=== PATIENT | male | born 1990 | race Asian ===

== ENCOUNTER 2020-09-09 00:06 | Emergency (ER) | payer MEDICAID ==
[~2020-09-09] VITALS: Ht 180.3 cm; Wt 70.3 kg
--- NOTE | 2020-09-09 01:21 | NUR ---
PT AAOX4. BIBSELF C/O RLQ ABD PAIN X 6 HRS,+N/V, -DIARRHEA. PLACED ON MONITOR AND PULSE OX. PROVIDED URINE SAMPLE. AT BEDSIDE FOR EVAL. AWAITING ORDERS.
[2020-09-09] MEDS ORDERED: MORPHINE SULFATE INJ 2 MG/ML DISP.SYRIN IV ONE (01:30)
[2020-09-09] MEDS ORDERED: IV NS 0.9% 1,000 ML BAG IV ONE (01:30)
[2020-09-09] MEDS ORDERED: ONDANSETRON HCL/PF - ER 4 MG/2 ML VIAL IV ONE (01:30)
[2020-09-09 01:55] LABS: BILIRUBIN,URINE MODERATE (NEGATIVE); COLOR,URINE YELLOW (YELLOW); LEUKOCYTE ESTERASE ,URINE NEGATIVE (NEGATIVE); NITRITE, URINE NEGATIVE (NEGATIVE); PH,URINE 5.5 (5.0-8.0); PROTEIN,URINE 100 mg/dl (NEGATIVE); UGLUCOSE NEGATIVE (NEGATIVE); UROBILINOGEN,URINE 0.2 EU/dL (0.2)
[2020-09-09] MEDS ORDERED: MORPHINE SULFATE INJ 4 MG/ML DISP.SYRIN ONE ×2 (01:59→02:14)
[2020-09-09] MEDS ORDERED: ONDANSETRON HCL/PF 4 MG/2 ML VIAL ONE ×2 (01:59→02:14)
[2020-09-09 02:03] LABS: BACTERIA,URINE 1+ /HPF (None Seen); RBC,URINE TOO NUMEROUS TO COUN /HPF (0-2)
--- NOTE | 2020-09-09 02:03 | NUR ---
BROUGHT TO CT
[2020-09-09 02:04] LABS: SQUAMOUS EPITHELIAL CELL,UR Few /HPF (None Seen)
[2020-09-09 02:17] LABS: BASOPHILS # (AUTO) 0.1 /CMM (0.0-0.2); BASOPHILS % (AUTO) 0.4 % (0.0-2.0); HEMATOCRIT 44 % (39-51); HEMOGLOBIN 14.7 g/dL (13.5-17.5); LYMPHOCYTES % (AUTO) 7.6 % (20.0-44.0); MEAN CORPUSCULAR HGB CONC 34 g/dl (31.0-36.0); MEAN CORPUSCULAR VOLUME 91 fL (80-96); MONOCYTES # (AUTO) 0.5 /CMM (0.1-1.30); MONOCYTES % (AUTO) 3.6 % (2.0-12.0); NEUTROPHILS # (AUTO) 11.8 /CMM (1.8-8.9); NEUTROPHILS % (AUTO) 88.4 % (43.0-81.0); PLATELET COUNT (AUTO) 318 /CMM (150-450); RED BLOOD CELL COUNT(AUTO) 4.82 MIL/uL (4.5-6.0); WHITE BLOOD COUNT (AUTO) 13.4 K/uL (4.3-11.0)
[2020-09-09 02:38] LABS: ALBUMIN 4.5 g/dL (3.4-5.0); BILIRUBIN,DIRECT 0.2 mg/dL (0.0-0.2); CALCIUM, SERUM 9.3 mg/dL (8.5-10.1); CREATININE 1.1 mg/dL (0.6-1.3); POTASSIUM 3.8 mmol/L (3.5-5.1); TOTAL PROTEIN, SERUM 7.9 g/dL (6.4-8.2)
[2020-09-09] MEDS ORDERED: CIPROFLOXACIN HCL 250 MG TABLET PO ONE (03:30)
[2020-09-09] MEDS ORDERED: IBUPROFEN 600 MG TABLET PO ONE (03:30)
[2020-09-09] MEDS ORDERED: IBUPROFEN 600 MG TABLET ONE (03:31)
[2020-09-09] MEDS ORDERED: CIPROFLOXACIN HCL 500 MG TABLET ONE (03:31)
[2020-09-09] MEDS ORDERED: IBUP-1955 PO (03:32)
[2020-09-09] MEDS ORDERED: TRAM50TA2 PO (03:32)
[2020-09-09] MEDS ORDERED: TAMS-12 PO (03:33)
[2020-09-09] MEDS ORDERED: CIPR-262 PO (03:49)
[2020-09-09 04:02] VITALS: BP 118/72
--- NOTE | 2020-09-09 04:02 | NUR ---
pt is medically stbale fo d/c,. IV removed. Catheter intact and site benign. Pressure and 4x4 applied to site. No bleeding noted.Patient discharged to home in stable condition. Rx and Written and verbal after care instructions given. Patient verbalizes understanding of instruction.
== END 2020-09-09 04:04 | disposition home or self-care (01) ==
LOC: ER 00:09
DX: S30.1XXA Contusion of abdominal wall, initial encounter (principal); N23 Unspecified renal colic; R31.9 Hematuria, unspecified; F17.200 Nicotine dependence, unspecified, uncomplicated; Z79.899 Other long term (current) drug therapy; X58.XXXA Exposure to other specified factors, initial encounter; Y93.89 Activity, other specified; Y92.89 Other specified places as the place of occurrence of the external cause; Y99.8 Other external cause status
CPT/HCPCS: 36415; 74176; 80048; 80076; 81001; 83690; 85025; 85730; 87086; 96360; 99284; J2405; J7030 ×2; J2270